=== PATIENT | male | born 1980 | race Hispanic/Latino ===

== ENCOUNTER 2020-11-14 00:22 | Emergency (ER) | payer SELFPAY ==
[2020-11-14 01:05] LABS: Protime INR 1.05
[2020-11-14 01:07] LABS: Absolute Lymphocytes (CBC) 1.7 K/uL (0.7-4.9); Basophils % 1.2 % (0-1.3); Hematocrit 39.7 % (39.6-49.0); Lymphocytes % 31.8 % (15.3-44.8); MPV 10.3 fL (7.6-11.3); RBC Red Blood Cell Count 4.56 M/uL (4.33-5.43)
[2020-11-14] MEDS ORDERED: KETOROLAC 30 MG/ML INJ ONE (01:09)
[2020-11-14] MEDS ORDERED: METOCLOPRAMIDE 10 MG/2mL INJ ONE (01:09)
[2020-11-14] MEDS ORDERED: NA CHLORIDE 0.9% 1,000 ML ONE (01:09)
[2020-11-14] MEDS ORDERED: DIPHENHYDRAMINE 50 MG/ML VIAL ONE (01:09)
[2020-11-14 01:19] LABS: ALT/SGPT 24 U/L (12-78); AST/SGOT 16 U/L (15-37); Albumin 4.2 g/dL (3.4-5.0); Alkaline Phosphatase 85 U/L (45-117); BUN Blood Urea Nitrogen 12 mg/dL (7-18); Bicarbonate 29 mmol/L (21-32); Bilirubin Direct 0.1 mg/dL (0-0.2); Bilirubin Total 0.6 mg/dL (0.2-1.0); Glucose Level 103 mg/dL (74-106); NT PRO-BNP 48 pg/mL (<125); Potassium 3.8 mmol/L (3.5-5.1); Protein, Total 7.7 g/dL (6.4-8.2); Sodium Level 142 mmol/L (136-145); Troponin (Emerg Dept Use Only) < 0.02 ng/mL (0.0-0.045)
--- NOTE | 2020-11-14 01:36 | ER ---
Nurse's Notes [facility] Name: Michael Augustin Jr Age: 40 yrs Sex: Male : 1980 Arrival Date: 11/14/2020 Time: 00:28 Bed 19 Private MD: Diagnosis: Essential (primary) hypertension Presentation: 11/14 00:35 Chief complaint: Patient states: BP was high at home was 179 systolic, has hx of htn, iw takes lisinopril 40 mg daily , last taken at 0500 , feels fatigued, dizzy and has tightness in back of neck that started today and feels like his arteries in his neck are pulsating and they hurt. Coronavirus screen: At this time, the client does not indicate any symptoms associated with coronavirus-19. Ebola Screen: Patient negative for fever greater than or equal to 101.5 degrees Fahrenheit, and additional compatible Ebola Virus Disease symptoms Patient denies exposure to infectious person. Patient denies travel to an Ebola-affected area in the 21 days before illness onset. No symptoms or risks identified at this time. Initial Sepsis Screen: Does the patient meet any 2 criteria? No. Patient's initial sepsis screen is negative. Does the patient have a suspected source of infection? No. Patient's initial sepsis screen is negative. Risk Assessment: Do you want to hurt yourself or someone else? Patient reports no desire to harm self or others. Onset of symptoms was November 13, 2020. 00:35 Method Of Arrival: Ambulatory iw 00:35 Acuity: REGI 3 iw Historical: - Allergies: 00:39 No Known Allergies; iw - Home Meds: 00:39 lisinopril 40 mg Oral tab 1 tab once daily [Active]; aspirin 81 mg Oral TbEC 1 tab once iw daily [Active]; - PMHx: 00:39 Hypertension; Hyperlipidemia; iw - PSHx: 00:39 sinus; iw - Immunization history:: Adult Immunizations Client reports having NOT received the Covid vaccine. Flu vaccine is up to date. - Social history:: Smoking status: Patient denies any tobacco usage or history of. - Family history:: not pertinent. Screenin:03 Abuse screen: Denies threats or abuse. Nutritional screening: No deficits noted. ea Tuberculosis screening: No symptoms or risk factors identified. Fall Risk IV access (20 points). Assessment: 01:05 General: Appears in no apparent distress. Behavior is calm, cooperative, appropriate ea for age. Pain: Complains of pain in headache. Neuro: Level of Consciousness is awake, alert, obeys commands, Oriented to person, place, time. Cardiovascular: Patient's skin is warm and dry. Respiratory: Airway is patent Respiratory effort is even, unlabored, Respiratory pattern is regular, symmetrical. Derm: Skin is pink, warm \T\ dry. 02:14 Reassessment: Patient and/or family updated on plan of care and expected duration. Pain ea level reassessed. Patient is alert, oriented x 3, equal unlabored respirations, skin warm/dry/pink. Discharge instruction given to patient verbalized the understanding of instruction. Pt left ED ambulatory tolerating well. Vital Signs: 00:35 BP 150 / 90; Pulse 55; Resp 16; Temp 97.6; Pulse Ox 98% on R/A; Weight 113.4 kg; Height iw 5 ft. 7 in. (170.18 cm); 00:35 Body Mass Index 39.16 (113.40 kg, 170.18 cm) iw ED Course: 00:28 Patient arrived in ED. es 00:38 Triage completed. iw 00:39 Alonzo Shoemaker MD is Attending Physician. ma2 00:39 Arm band placed on. iw 00:41 Jolene Sorto, AUBREY is Primary Nurse. ea 01:03 Inserted saline lock: 20 gauge in left antecubital area, using aseptic technique. ea 01:04 Patient has correct armband on for positive identification. Placed in gown. Bed in low ea position. Call light in reach. Side rails up X 1. 02:15 No provider procedures requiring assistance completed. IV discontinued, intact, ea bleeding controlled, No redness/swelling at site. Pressure dressing applied. Administered Medications: 01:01 Drug: TORadol (ketorolac) 30 mg Route: IVP; Site: right antecubital; ea 02:16 Follow up: Response: No adverse reaction ea 01:01 Drug: Benadryl (diphenhydrAMINE) 25 mg Route: IVP; Site: right antecubital; ea 02:16 Follow up: Response: No adverse reaction ea 01:02 Drug: NS 0.9% 1000 ml Route: IV; Rate: 1 bolus; Site: right antecubital; ea 02:15 Follow up: Response: No adverse reaction; IV Status: Completed infusion; IV Intake: ea 1000ml 01:02 Drug: Reglan (metoCLOPramide) 10 mg Route: IVP; Site: right antecubital; ea 02:16 Follow up: Response: No adverse reaction ea Intake: 02:15 IV: 1000ml; Total: 1000ml. ea Outcome: 01:35 Discharge ordered by MD. vance 02:15 Discharged to home ambulatory, with family. ea 02:15 Condition: stable 02:15 Discharge instructions given to patient, Instructed on discharge instructions, follow up and referral plans. Demonstrated understanding of instructions, follow-up care. 02:16 Patient left the ED. ea Signatures: Marina Cruz Irene RN Jolene Anders RN RN ea Alzahri, Mohammad, MD MD ma2
--- NOTE | 2020-11-14 01:37 | EDPHYS ---
Physician Documentation [facility] Name: Michael Augustin Jr Age: 40 yrs Sex: Male : 1980 Arrival Date: 11/14/2020 Time: 00:28 Bed 19 Private MD: ED Physician Alonzo Shoemaker HPI: 11/14 01:00 This 40 yrs old Male presents to ER via Ambulatory with complaints of Blood ma2 Pressure Problem. 01:00 Onset: The symptoms/episode began/occurred gradually, 1 day(s) ago. Associated signs ma2 and symptoms: Pertinent negatives: blurred vision, confusion, focal weakness. Severity of symptoms: At their worst the symptoms were mild in the emergency department the symptoms are unchanged. The patient has experienced similar episodes in the past. HAS HTN ON LISINOPRIL, HERE WITH DIZZINESS AND HEADACHE X 1 DAYMILD AND GRADUAL ALSO NOTICEDSBP 170. Historical: - Allergies: 00:39 No Known Allergies; iw - Home Meds: 00:39 lisinopril 40 mg Oral tab 1 tab once daily [Active]; aspirin 81 mg Oral TbEC 1 tab once iw daily [Active]; - PMHx: 00:39 Hypertension; Hyperlipidemia; iw - PSHx: 00:39 sinus; iw - Immunization history:: Adult Immunizations Client reports having NOT received the Covid vaccine. Flu vaccine is up to date. - Social history:: Smoking status: Patient denies any tobacco usage or history of. - Family history:: not pertinent. ROS: 01:00 Constitutional: Negative for fever, chills, and weight loss. ma2 01:00 All other systems are negative. Exam: 01:00 Constitutional: This is a well developed, well nourished patient who is awake, alert, ma2 and in no acute distress. Head/Face: Normocephalic, atraumatic. Eyes: Pupils equal round and reactive to light, extra-ocular motions intact. Lids and lashes normal. Conjunctiva and sclera are non-icteric and not injected. Cornea within normal limits. Periorbital areas with no swelling, redness, or edema. ENT: Nares patent. No nasal discharge, no septal abnormalities noted. Tympanic membranes are normal and external auditory canals are clear. Oropharynx with no redness, swelling, or masses, exudates, or evidence of obstruction, uvula midline. Mucous membranes moist. Neck: Trachea midline, no thyromegaly or masses palpated, and no cervical lymphadenopathy. Supple, full range of motion without nuchal rigidity, or vertebral point tenderness. No Meningismus. Chest/axilla: Normal chest wall appearance and motion. Nontender with no deformity. No lesions are appreciated. Cardiovascular: Regular rate and rhythm with a normal S1 and S2. No gallops, murmurs, or rubs. Normal PMI, no JVD. No pulse deficits. Respiratory: Lungs have equal breath sounds bilaterally, clear to auscultation and percussion. No rales, rhonchi or wheezes noted. No increased work of breathing, no retractions or nasal flaring. Abdomen/GI: Soft, non-tender, with normal bowel sounds. No distension or tympany. No guarding or rebound. No evidence of tenderness throughout. Back: No spinal tenderness. No costovertebral tenderness. Full range of motion. MS/ Extremity: Pulses equal, no cyanosis. Neurovascular intact. Full, normal range of motion. Neuro: Awake and alert, GCS 15, oriented to person, place, time, and situation. Cranial nerves II-XII grossly intact. Motor strength 5/5 in all extremities. Sensory grossly intact. Cerebellar exam normal. Normal gait. Vital Signs: 00:35 BP 150 / 90; Pulse 55; Resp 16; Temp 97.6; Pulse Ox 98% on R/A; Weight 113.4 kg; Height iw 5 ft. 7 in. (170.18 cm); 00:35 Body Mass Index 39.16 (113.40 kg, 170.18 cm) iw MDM: 01:00 Differential diagnosis: hyperventilation, hypovolemia, idiopathic dizziness, MIGRAIN VS ma2 TENSION HEADACHE . 01:35 Data reviewed: vital signs, nurses notes, EMS record. Counseling: I had a detailed ma2 discussion with the patient and/or guardian regarding: the historical points, exam findings, and any diagnostic results supporting the discharge/admit diagnosis, the presence of at least one elevated blood pressure reading (>120/80) during this emergency department visit, the need for outpatient follow up. Response to treatment: the patient's symptoms have resolved after treatment. ED course: PATIENT DID NOT HAD ANY CHEST PAIN OR ANGINA EQUIVALENT . 01:35 Patient medically screened. ma2 26 00:41 Order name: Basic Metabolic Panel; Complete Time: :11/14 00:41 Order name: CBC with Diff; Complete Time: :11/14 00:41 Order name: LFT's; Complete Time: :11/14 00:41 Order name: Magnesium; Complete Time: :11/14 00:41 Order name: NT PRO-BNP; Complete Time: :11/14 00:41 Order name: PT-INR; Complete Time: :11/14 00:41 Order name: Troponin (emerg Dept Use Only); Complete Time: :11/14 00:41 Order name: EKG; Complete Time: 00:42 11/14 00:41 Order name: Cardiac monitoring; Complete Time: 01:11/14 00:41 Order name: EKG - Nurse/Tech; Complete Time: 01:11/14 00:41 Order name: IV Saline Lock; Complete Time: :11/14 00:41 Order name: Labs collected and sent; Complete Time: 01:11/14 00:41 Order name: O2 Per Protocol; Complete Time: :11/14 00:41 Order name: O2 Sat Monitoring; Complete Time: 01:08 Administered Medications: 01:01 Drug: TORadol (ketorolac) 30 mg Route: IVP; Site: right antecubital; ea 02:16 Follow up: Response: No adverse reaction ea 01:01 Drug: Benadryl (diphenhydrAMINE) 25 mg Route: IVP; Site: right antecubital; ea 02:16 Follow up: Response: No adverse reaction ea 01:02 Drug: NS 0.9% 1000 ml Route: IV; Rate: 1 bolus; Site: right antecubital; ea 02:15 Follow up: Response: No adverse reaction; IV Status: Completed infusion; IV Intake: ea 1000ml 01:02 Drug: Reglan (metoCLOPramide) 10 mg Route: IVP; Site: right antecubital; ea 02:16 Follow up: Response: No adverse reaction ea Disposition: 11/14/20 01:35 Discharged to Home. Impression: Essential (primary) hypertension. - Condition is Stable. - Discharge Instructions: Hypertension. - Prescriptions for Reglan 10 mg Oral Tablet - take 1 tablet by ORAL route every 6 hours . take 30 minutes before meals and at bedtime; 100 tablet. - Medication Reconciliation Form, Thank You Letter, Antibiotic Education, Prescription Opioid Use form. - Follow up: Private Physician; When: Tomorrow; Reason: Recheck today's complaints. Signatures: Dispatcher [employer] EDBrittanie Gomez RN RN iw Antunez, Elena, RN RN ea Alzahri, Mohammad, MD MD ma2 Corrections: (The following items were deleted from the chart) 02:16 01:35 11/14/2020 01:35 Discharged to Home. Impression: Essential (primary) ea hypertension. Condition is Stable. Prescriptions for Reglan 10 mg Oral Tablet - take 1 tablet by ORAL route every 6 hours . take 30 minutes before meals and at bedtime; 100 tablet. and Forms are Medication Reconciliation Form, Thank You Letter, Antibiotic Education, Prescription Opioid Use. Follow up: Private Physician; When: Tomorrow; Reason: Recheck today's complaints. ma2
[2020-11-14 02:30] VITALS: BP 150/90; TEMP 97.6; O2SAT 98
--- NOTE | 2020-11-14 11:57 | EKG ---
Test Date: 2020-11-14 Test Time: 00:46:04 Fashion Illustrator: RADHA MEASUREMENT RESULTS: Intervals: Rate: 51 MD: 170 QRSD: 120 QT: 458 QTc: 422 [place]: P: 44 MD: 170 QRS: 1 T: 22 INTERPRETIVE STATEMENTS: Sinus bradycardia Nonspecific intraventricular conduction delay T wave abnormality, consider anterior ischemia Abnormal ECG No previous ECG available for comparison Electronically Signed On 11-14-20 11:56:50 CDT by Yosef Sanders
== END 2020-11-14 02:16 | disposition home or self-care (01) ==
LOC: ER 00:22
DX: I10 Essential (primary) hypertension (principal); E78.5 Hyperlipidemia, unspecified; R42 Dizziness and giddiness; R51.9 Headache, unspecified
CPT/HCPCS: 36415; 80048; 80076; 83735; 83880; 84484; 85025; 85610; 93005; 96361; 96374; 96375; 99283; J1200; J2765; J7030